=== PATIENT | male | born 1940 | race Caucasian/White ===

== ENCOUNTER → 2018-05-16 | Outpatient (CLI) | payer OTHER | LOC: EDSEX → CVU 10:07 | PROVIDERS: ATTEND Internal Medicine Cardiovascular Disease | DX: I37.1 Nonrheumatic pulmonary valve insufficiency (principal); I35.8 Other nonrheumatic aortic valve disorders; I10 Essential (primary) hypertension; I48.91 Unspecified atrial fibrillation; Z87.891 Personal history of nicotine dependence | CPT/HCPCS: 93306 ==

== ENCOUNTER 2019-01-06 08:15 | Observation (INO) | payer OTHER ==
[~2019-01-06] VITALS: Ht 190.5 cm; Wt 142.1 kg
[~2019-01-06 08:15] MED LIST: ATOR-2 PO; DILT120C80 PO; FURO-93 PO; FURO40TA6 PO; MEMA10TA20 PO; METO25TA35 PO; POTA10CA PO; RANI-448 PO; RISP0.253 PO; TAMS0.4C2 PO; TRAZ-137 PO; WARF-36 PO
--- NOTE | 2019-01-06 08:36 | NUR ---
DAUGHTER, MOO BOND, CALLED. HER PHONE NUMBER IS . GRANDSON, LILLIE BOND, IS .
--- NOTE | 2019-01-06 09:03 | NUR ---
REPORT FROM RICHARD AMADO.
--- NOTE | 2019-01-06 09:50 | NUR ---
RETURNED FROM XRAY AND LAB AT BEDSIDE DRAWING BLOOD
[2019-01-06 10:12] LABS: BASOPHILS # (AUTO) 0.02 x10^3/uL (0-0.1); BASOPHILS % (AUTO) 0 % (0-1); EOSINOPHILS % (AUTO) 2 % (1-7); LYMPHOCYTES # (AUTO) 0.73 x10^3/uL (1-3.4); LYMPHOCYTES % (AUTO) 9 % (22-44); MD NO; MEAN CORPUSCULAR HGB CONC 32.9 g/dL (33.2-36.2); MEAN CORPUSCULAR VOLUME 94.3 fL (81-97); MEAN PLATELET VOLUME 7.8 fL (7.4-10.4); MONOCYTES # (AUTO) 0.79 x10^3/uL (0.2-0.8); MONOCYTES % (AUTO) 9 % (2-9); NEUTROPHILS # (AUTO) 6.79 x10^3/uL (1.8-6.8); NEUTROPHILS % (AUTO) 80 % (42-75); PLATELET COUNT 326 x10^3/uL (130-400); RED BLOOD COUNT 5.07 x10^6/uL (4.38-5.82); RED CELL DISTRIBUTION WIDTH 14.9 % (9.4-14.8)
[2019-01-06 10:25] LABS: ANION GAP 5 mmol/L (5-15); CHLORIDE 104 mmol/L (98-107); CREATININE 2.06 mg/dL (0.7-1.3)
[2019-01-06 10:39] LABS: INTERNATIONAL NORMALIZED RATIO 3.2 (0.93-1.1); PROTHROMBIN TIME 32.4 Seconds (9.6-11.5)
--- NOTE | 2019-01-06 11:02 | NUR ---
UOB WITH ASSISTANCE. ABLE TO STAND AT EDGE OF BED AND USE URINAL. PT STATES SOME PAIN IN LOWER BACK WITH STANDING. PT DISPLAYS SOME SOB WHEN RETURNING TO BED AND REPOSITIONING
--- NOTE | 2019-01-06 11:53 | NUR ---
RESTING COMFORTABLY WHILE AWAITING CT RESULTS
[2019-01-06] MEDS ORDERED: SODIUM CHLORIDE 0.9% 1,000ML IVBOLUS ONE (12:30)
--- NOTE | 2019-01-06 13:20 | NUR ---
FAMILY REMAINS AT BEDSIDE. PT AWARE OF PENDING ADMISSION. PROVIDED SNACK
[2019-01-06] MEDS ORDERED: SODIUM CHLORIDE 0.9% 1,000 ML IV SCH (14:08)
[2019-01-06] MEDS ORDERED: ONDANSETRON ODT 4 MG PO PRN (14:30)
[2019-01-06] MEDS ORDERED: LABETALOL 5MG/ML, 20ML IVPush PRN (14:30)
[2019-01-06] MEDS ORDERED: ONDANSETRON 2MG/ML, 2ML IVPush PRN (14:30)
--- NOTE | 2019-01-06 14:41 | NUR ---
FLUIDS INFUSING PER ORDERS. AWAITING ROOM ASSIGNMENT
[2019-01-06 16:23] VITALS: BP 130/78
[2019-01-06 19:31] VITALS: BP 143/77
[2019-01-06] MEDS: LIDODERM 5% PATCH TD SCH (19:50)
[2019-01-06 21:15] LABS: MICROSCOPIC AUTO
[2019-01-06 21:24] LABS: POTASSIUM,URINE RANDOM 35 mmol/L; SODIUM,URINE RANDOM 49 mmol/L
[2019-01-06 21:25] LABS: CHLORIDE,URINE RANDOM < 10 mmol/L
[2019-01-06 21:58] LABS: CULTURE INDICATED? YES
[2019-01-07 01:57] VITALS: BP 131/74
[2019-01-07 05:18] LABS: BASOPHILS # (AUTO) 0.07 x10^3/uL (0-0.1); BASOPHILS % (AUTO) 1 % (0-1); EOSINOPHILS % (AUTO) 4 % (1-7); LYMPHOCYTES # (AUTO) 1.07 x10^3/uL (1-3.4); LYMPHOCYTES % (AUTO) 14 % (22-44); MD NO; MEAN CORPUSCULAR HEMOGLOBIN 31.5 pg (27.5-34.5); MEAN CORPUSCULAR HGB CONC 33.5 g/dL (33.2-36.2); MEAN PLATELET VOLUME 7.7 fL (7.4-10.4); MONOCYTES # (AUTO) 0.81 x10^3/uL (0.2-0.8); MONOCYTES % (AUTO) 11 % (2-9); NEUTROPHILS # (AUTO) 5.37 x10^3/uL (1.8-6.8); NEUTROPHILS % (AUTO) 71 % (42-75); PLATELET COUNT 286 x10^3/uL (130-400); RED BLOOD COUNT 4.49 x10^6/uL (4.38-5.82); RED CELL DISTRIBUTION WIDTH 14.7 % (9.4-14.8)
[2019-01-07 05:32] LABS: ALBUMIN 2.9 g/dL (3.4-5.0); ANION GAP 8 mmol/L (5-15); CALCIUM 8.5 mg/dL (8.5-10.1); CHLORIDE 107 mmol/L (98-107)
[2019-01-07 05:36] LABS: ALANINE AMINOTRANSFERASE 22 U/L (12-78); ALKALINE PHOSPHATASE 108 U/L (45-117); BILIRUBIN,TOTAL 0.7 mg/dL (0.2-1.0); CREATININE 1.66 mg/dL (0.7-1.3); TOTAL PROTEIN 6.5 g/dL (6.4-8.2)
[2019-01-07 07:00] VITALS: BP 115/71
[2019-01-07] MEDS ORDERED: PANTOPRAZOLE 40 MG IV IVPush SCH (07:30)
[2019-01-07 08:50] LABS: INTERNATIONAL NORMALIZED RATIO 4.22 (0.93-1.1); PROTHROMBIN TIME 42.3 Seconds (9.6-11.5)
[2019-01-07] MEDS: DILTIAZEM 120 MG CAP.ER.24H PO SCH (09:05)
[2019-01-07] MEDS: TAMSULOSIN 0.4 MG CAP.ER.24H PO SCH (09:06)
[2019-01-07] MEDS: MEMANTINE 10MG TABLET PO SCH ×2 (09:06→19:55)
[2019-01-07] MEDS: RISPERIDONE 0.5 MG TABLET PO SCH (09:06)
[2019-01-07] MEDS: METOPROLOL TARTRATE 25 MG TABLET PO SCH ×2 (09:06→19:55)
[2019-01-07] MEDS: POTASSIUM CHLORIDE 10 MEQ TABLET.ER PO SCH (09:07)
[2019-01-07] MEDS ORDERED: HOLD COUMADIN MC PRN (11:30)
[2019-01-07 12:27] VITALS: BP 105/63
[2019-01-07 19:14] VITALS: BP 121/78
[2019-01-07] MEDS: LIDODERM 5% PATCH TD SCH (19:55)
[2019-01-07] MEDS ORDERED: ATORVASTATIN 20 MG TABLET PO SCH (21:00)
[2019-01-07] MEDS ORDERED: TRAZODONE 50MG TABLET PO SCH (21:00)
[2019-01-08 00:51] VITALS: BP 110/68
[2019-01-08 05:24] LABS: INTERNATIONAL NORMALIZED RATIO 3.45 (0.93-1.1); PROTHROMBIN TIME 34.9 Seconds (9.6-11.5)
[2019-01-08] MEDS ORDERED: PANTOPROZOLE 40MG TABLET PO SCH (06:00)
[2019-01-08 07:49] VITALS: BP 146/82
[2019-01-08] MEDS: MEMANTINE 10MG TABLET PO SCH (08:26)
[2019-01-08] MEDS: DILTIAZEM 120 MG CAP.ER.24H PO SCH (08:26)
[2019-01-08] MEDS: POTASSIUM CHLORIDE 10 MEQ TABLET.ER PO SCH (08:26)
[2019-01-08] MEDS: RISPERIDONE 0.5 MG TABLET PO SCH (08:27)
[2019-01-08] MEDS: METOPROLOL TARTRATE 25 MG TABLET PO SCH (08:27)
[2019-01-08] MEDS: TAMSULOSIN 0.4 MG CAP.ER.24H PO SCH (08:27)
[2019-01-08 09:00] LABS: BASOPHILS # (AUTO) 0.02 x10^3/uL (0-0.1); BASOPHILS % (AUTO) 0 % (0-1); EOSINOPHILS # (AUTO) 0.23 x10^3/uL (0-0.4); EOSINOPHILS % (AUTO) 3 % (1-7); LYMPHOCYTES % (AUTO) 13 % (22-44); MD NO; MEAN CORPUSCULAR HEMOGLOBIN 30.9 pg (27.5-34.5); MEAN CORPUSCULAR HGB CONC 33.1 g/dL (33.2-36.2); MEAN CORPUSCULAR VOLUME 93.6 fL (81-97); MEAN PLATELET VOLUME 7.7 fL (7.4-10.4); MONOCYTES # (AUTO) 0.56 x10^3/uL (0.2-0.8); MONOCYTES % (AUTO) 8 % (2-9); NEUTROPHILS # (AUTO) 5.16 x10^3/uL (1.8-6.8); NEUTROPHILS % (AUTO) 75 % (42-75); PLATELET COUNT 287 x10^3/uL (130-400); RED BLOOD COUNT 4.89 x10^6/uL (4.38-5.82); RED CELL DISTRIBUTION WIDTH 14.5 % (9.4-14.8)
[2019-01-08 09:05] LABS: ALBUMIN 3.1 g/dL (3.4-5.0); ANION GAP 7 mmol/L (5-15); CALCIUM 8.9 mg/dL (8.5-10.1); CHLORIDE 108 mmol/L (98-107); CREATININE 1.64 mg/dL (0.7-1.3)
[2019-01-08] MEDS ORDERED: WARF4TAB65 PO (11:02)
[2019-01-08 12:47] VITALS: BP 144/91
== END 2019-01-08 14:18 | disposition home health service (06) ==
LOC: ED 08:47 → INTOOBSV 12:13 → EDIP 12:13 → 4NOR 16:01 → DCLOUNGE 01-08 14:00
PROVIDERS: ADMIT Hospitalist; ATTEND Hospitalist
DX: M48.56XA Collapsed vertebra, not elsewhere classified, lumbar region, initial encounter for fracture (principal); N17.9 Acute kidney failure, unspecified; I13.0 Hypertensive heart and chronic kidney disease with heart failure and stage 1 through stage 4 chronic kidney disease, or unspecified chronic kidney disease; I50.30 Unspecified diastolic (congestive) heart failure; D68.69 Other thrombophilia; N18.3 Chronic kidney disease, stage 3 (moderate); E78.5 Hyperlipidemia, unspecified; F03.90 Unspecified dementia, unspecified severity, without behavioral disturbance, psychotic disturbance, mood disturbance, and anxiety; G89.29 Other chronic pain; I48.91 Unspecified atrial fibrillation; M85.80 Other specified disorders of bone density and structure, unspecified site; Z66 Do not resuscitate; Z87.891 Personal history of nicotine dependence; Z96.643 Presence of artificial hip joint, bilateral; Z79.01 Long term (current) use of anticoagulants; Z79.899 Other long term (current) drug therapy; Z90.49 Acquired absence of other specified parts of digestive tract; X58.XXXA Exposure to other specified factors, initial encounter; Y93.89 Activity, other specified; Y92.89 Other specified places as the place of occurrence of the external cause; Y99.8 Other external cause status
CPT/HCPCS: 36415; 71045; 72080; 72110; 72131; 80048; 80053; 81001; 82040; 82436; 82570; 83735; 83880; 84100; 84133; 84300; 85025; 85610; 87086; 93005; 96374; 97116; 97162; 97166; 99284; C9113; G0378; J7030; 99285